=== PATIENT | female | born 1985 | race Caucasian/White ===

== ENCOUNTER 2023-10-19 18:42 | Emergency (ER) | payer OTHER ==
[2023-10-19 18:48] VITALS: BP 122/66; PULSE 81; RESP 18; BMI 22.6
== END 2023-10-19 19:47 | disposition left against medical advice (07) ==
LOC: JER 18:42
DX: F41.0 Panic disorder [episodic paroxysmal anxiety] (principal); Z53.21 Procedure and treatment not carried out due to patient leaving prior to being seen by health care provider
CPT/HCPCS: 99281-25